=== PATIENT | female | born 1960 | race Hispanic/Latino ===

== ENCOUNTER 2017-01-07 07:29 | Outpatient (CLI) | payer OTHER ==
--- NOTE | 2017-01-07 09:01 | ULT ---
RENAL SONOGRAM: DATE: 01/07/17. HISTORY: Hydronephrosis. COMPARISON: 08/09/16. FINDINGS: The kidneys demonstrate a normal sonographic appearance bilaterally without hydronephrosis. There is minimal caliectasis of the left kidney, but the hydronephrosis seen on the prior exam has resolved. There is no evidence of a renal mass, renal calculus, or perinephric fluid collection. The right kidney measures 10 cm x 4.7 cm with the left kidney measuring 10 cm x 4.5 cm. The urinary bladder demonstrates a normal sonographic appearance. The prevoid urinary bladder volume is 74.6 mL with the postvoid urinary bladder volume of 4 mL. IMPRESSION: 1, Normal-appearing bilateral kidneys without evidence of hydronephrosis. There is minimal caliecta sis involving the left renal collecting system, but the hydronephrosis noted on the prior study has i mproved. The kidneys otherwise have a normal sonographic appearance bilaterally. 2. Normal-appearing urinary bladder without postvoid residual. POS: [facility]
== END 2017-01-07 07:30 | disposition home or self-care (01) ==
LOC: ULT 07:29
PROVIDERS: ATTEND Urology
DX: N13.30 Unspecified hydronephrosis (principal)
CPT/HCPCS: 76770

== ENCOUNTER 2017-06-22 08:54 | Outpatient (CLI) | payer OTHER ==
--- NOTE | 2017-06-22 11:19 | ULT ---
LIVER ULTRASOUND WITH DOPPLER: HISTORY: Primary biliary cirrhosis. FINDINGS: The liver measures 14.3 cm in length. A 2 cm cyst is seen in the left lobe of the liver. No intrahe patic duct dilatation is seen. The patient is post cholecystectomy. The common duct measures 4 mm i n diameter. The spleen measures 8.2 cm in length and is normal. The pancreas is not satisfactorily visualized due to overlying bowel gas. No free fluid is noted. There is normal flow and spectral wa veforms in the hepatic, portal, and splenic vasculature. IMPRESSION: 1. A 2 cm hepatic cyst. 2. Status post cholecystectomy. POS: [facility]
== END 2017-06-22 08:55 | disposition home or self-care (01) ==
LOC: SCSULT 08:54
PROVIDERS: ATTEND Internal Medicine Gastroenterology
DX: K74.3 Primary biliary cirrhosis (principal); K21.9 Gastro-esophageal reflux disease without esophagitis; R10.10 Upper abdominal pain, unspecified; F41.9 Anxiety disorder, unspecified; K76.89 Other specified diseases of liver; Z90.49 Acquired absence of other specified parts of digestive tract
CPT/HCPCS: 76705

== ENCOUNTER 2017-07-05 09:12 | Outpatient (CLI) | payer OTHER ==
--- NOTE | 2017-07-05 12:06 | ULT ---
BILATERAL RENAL ULTRASOUND: Date: 07/05/17 HISTORY: Renal stones. FINDINGS: Comparison made with exam of 01/07/17. The right kidney measures 10.6 cm in length and the left kidney measures 11.7 cm in length. There are echogenic foci on the right kidney, likely nonobstructing calculi. No hydronephrosis seen on either side. Minimal caliectasis in the left kidney is again seen, which persists on post-void images. The u rinary bladder is unremarkable. Post-void residual was 12 mL. The pre-void volume was 182 mL. IMPRESSION: No evidence of hydronephrosis. Stable minimal left-sided caliectasis since 01/07/17. POS: [facility]
== END 2017-07-05 09:13 | disposition home or self-care (01) ==
LOC: SCSULT 09:12
PROVIDERS: ATTEND Urology
DX: N20.0 Calculus of kidney (principal)
CPT/HCPCS: 76770

== ENCOUNTER 2018-09-28 10:44 | Outpatient (CLI) | payer OTHER ==
--- NOTE | 2018-09-28 11:41 | MMO ---
Bilateral MAMMO Bilat Screen [facility]. CLINICAL HISTORY: Patient is 58 years old and is seen for screening. VIEWS: The views performed were: bilateral craniocaudal with tomosynthesis and bilateral mediolateral oblique with tomosynthesis. FILMS COMPARED: The present examination has been compared to prior imaging studies performed at [facility] on 12/04/2012, 12/17/2013 and 01/09/2015, and at [facility] on 12/18/2013. MAMMOGRAM FINDINGS: The breasts are heterogeneously dense, which could obscure a lesion on mammography. There are no suspicious masses, suspicious calcifications, or new areas of architectural distortion. IMPRESSION: THERE IS NO MAMMOGRAPHIC EVIDENCE OF MALIGNANCY. A ROUTINE FOLLOW-UP MAMMOGRAM IN 1 YEAR IS RECOMMENDED. THE RESULTS OF THIS EXAM WERE SENT TO THE PATIENT. ACR BI-RADS Category 1 - Negative MAMMOGRAPHY NOTE: 1. A negative mammogram report should not delay a biopsy if a dominant of clinically suspicious mass is present. 2. Approximately 10% to 15% of breast cancers are not detected by mammography. 3. Adenosis and dense breasts may obscure an underlying neoplasm. Reported by: CHRISTINA RUSS MD Electonically Signed: [id number]
== END 2018-09-28 10:45 | disposition home or self-care (01) ==
LOC: BICMAMMO 10:44
PROVIDERS: ATTEND Family Medicine
DX: Z12.31 Encounter for screening mammogram for malignant neoplasm of breast (principal)
CPT/HCPCS: 77063; 77067

== ENCOUNTER 2019-02-16 07:53 | Outpatient (CLI) | payer OTHER ==
--- NOTE | 2019-02-16 09:36 | MRI ---
Thoracic spine MRI without contrast: 02/16/2019 COMPARISON: None HISTORY: Right upper quadrant pain TECHNIQUE: Multiplanar multisequence MR imaging of the thoracic spine obtained without contrast. FINDINGS: The sagittal STIR imaging demonstrates no focal area of osseous marrow edema. The thoracic vertebral body height and alignment appears within normal limits within the thoracic spi ne. There is no anterolisthesis or retrolisthesis noted within the thoracic spine. There is no central canal stenosis at any level within the thoracic spine. There is no focal area of abnormal signal intensity within the thoracic cord. No significant neural foraminal stenosis on either side at any level. IMPRESSION: Grossly unremarkable thoracic spine MRI.
== END 2019-02-16 07:54 | disposition home or self-care (01) ==
LOC: SCSMRI 07:53
PROVIDERS: ATTEND Family Medicine
DX: R10.11 Right upper quadrant pain (principal)
CPT/HCPCS: 72146

== ENCOUNTER 2019-03-06 10:04 | Outpatient (CLI) | payer OTHER ==
--- NOTE | 2019-03-06 11:58 | CT ---
CT ABDOMEN AND PELVIS WITH IV CONTRAST 03/06/2019 CLINICAL INFORMATION: Right upper quadrant abdominal pain. Irregular bowel habits. Gastroesophageal reflux. COMPARISON: 11/15/[address] abdomen and pelvis on 06/14/2016 Technique: Multiple contiguous axial CT images are obtained through the abdomen and pelvis with IV contrast. Cor onal reformatted images are provided. FINDINGS: Lower Chest: Stable pleural-based nodular densities are seen at the lower right lateral lung base. Lorin ng bases are otherwise clear. Vessels: Mild vascular calcifications in the abdominal aorta. Abdomen: Portal vein:Patent Gallbladder: Surgically absent. Liver: Stable cyst lateral segment left hepatic lobe. The liver is otherwise normal in appearance. Spleen: within normal limits. Pancreas: within normal limits. Adrenals: within normal limits. Kidneys: Resolution of left hydronephrosis noted on the prior exam. There is mild caliectasis bilater ally. There is bilateral renal parenchymal scarring again seen. No ureteral calculus is seen on this exam. Bowel: Small hiatal hernia is present. There are postsurgical changes of the stomach. Loops of small bowel are normal in caliber Appendix: The appendix is visualized and normal in caliber. Peritoneum: No ascites or free air; no fluid collection. Mesentery and Retroperitoneum: No enlarged mesenteric or retroperitoneal lymph nodes. Abdominal Wall: within normal limits. Pelvis: Reproductive Organs: Uterus is surgically absent. Pelvis within normal limits. Bladder: within normal limits. Bones: No suspicious lytic or sclerotic osseous lesions. IMPRESSION: 1. No acute findings in the abdomen or pelvis. 2. Renal cortical scarring bilaterally. There has been resolution of hydronephrosis involving the lef t kidney when compared to prior exam. Bilateral renal calculi previously seen are not well delineated on this postcontrast exam; although, there is question of a tiny 2 mm nonobstructing calcu albert midportion left kidney. 3. Postsurgical changes related to cholecystectomy and hysterectomy as well as postsurgical changes i nvolving the stomach.
== END 2019-03-06 10:05 | disposition home or self-care (01) ==
LOC: SCSCT 10:04
PROVIDERS: ATTEND Physician Assistant Medical
DX: K21.9 Gastro-esophageal reflux disease without esophagitis (principal); R10.11 Right upper quadrant pain; K74.3 Primary biliary cirrhosis; R19.5 Other fecal abnormalities; R19.4 Change in bowel habit; N20.0 Calculus of kidney; N28.89 Other specified disorders of kidney and ureter; Z90.49 Acquired absence of other specified parts of digestive tract; Z90.710 Acquired absence of both cervix and uterus
CPT/HCPCS: 74177; 82565

== ENCOUNTER → 2022-11-29 | Day surgery (SDC) | payer OTHER | LOC: SDC 13:20 | PROVIDERS: ATTEND Physician Assistant Medical | PROC: 4A0B88Z Measurement of Gastrointestinal Motility, Via Natural or Artificial Opening Endoscopic (ICD-10-PCS; principal; 2022-11-29) | DX: K22.4 Dyskinesia of esophagus (principal); K21.9 Gastro-esophageal reflux disease without esophagitis; K44.9 Diaphragmatic hernia without obstruction or gangrene; E03.9 Hypothyroidism, unspecified; E78.00 Pure hypercholesterolemia, unspecified; M19.90 Unspecified osteoarthritis, unspecified site; Z87.442 Personal history of urinary calculi; Z90.49 Acquired absence of other specified parts of digestive tract; Z90.710 Acquired absence of both cervix and uterus; Z98.84 Bariatric surgery status; Z79.899 Other long term (current) drug therapy; Z79.890 Hormone replacement therapy | CPT/HCPCS: 91010; 91034 ==

== ENCOUNTER 2022-12-03 07:26 | Outpatient (CLI) | payer OTHER | END 2022-12-03 07:27 | disposition home or self-care (01) | LOC: RAD 07:26 | PROVIDERS: ATTEND Physician Assistant Medical | DX: K21.9 Gastro-esophageal reflux disease without esophagitis (principal); K22.4 Dyskinesia of esophagus; K74.3 Primary biliary cirrhosis; R63.4 Abnormal weight loss; R13.10 Dysphagia, unspecified; K44.9 Diaphragmatic hernia without obstruction or gangrene | CPT/HCPCS: 74220 ==